=== PATIENT | male | born 1970 | race Caucasian/White ===

== ENCOUNTER 2023-08-28 13:07 | Inpatient (IN) | payer MEDICAID, OTHER ==
[~2023-08-28] VITALS: Ht 162.6 cm; Wt 76.5 kg
[2023-08-28] MEDS ORDERED: VANCOMYCIN 1G PREMIX 200 ML IV NR (15:00)
[2023-08-28] MEDS ORDERED: CEFTRIAXONE 1GM PREMIX 50 ML IV NR (15:00)
[2023-08-28 15:21] LABS: BASOPHILS % 0.3 % (0.0-2.0); EOSINOPHILS % 0.2 % (0.0-5.0); HEMATOCRIT. 33.3 % (42.0-52.0); HEMOGLOBIN. 11.1 g/dL (14.0-18.0); LYMPHOCYTES % 14.5 % (20.0-50.0); MEAN CORPUSCULAR HEMOGLOBIN 28.8 pg (28.0-32.0); MEAN CORPUSCULAR HGB CONC 33.4 g/dL (31.0-37.0); MEAN CORPUSCULAR VOLUME 86.2 fL (80.0-94.0); MEAN PLATELET VOLUME 6.5 fl (7.4-10.4); MONOCYTES % 7.6 % (2.0-8.0); NEUTROPHILS % 77.4 % (40.0-76.0); PLATELET 570 x1000/uL (130-400); RED BLOOD CELL COUNT 3.86 mill/uL (4.7-6.1); RED CELL DISTRIBUTION WIDTH 15.5 % (11.6-14.6); WHITE BLOOD COUNT 11.7 x1000/uL (4.5-11.0)
[2023-08-28 15:31] LABS: INR 1.1; PROTHROMBIN TIME 11.3 sec (9.6-11.0)
[2023-08-28 15:32] LABS: CHLORIDE 105 mEq/L (98-107); INDEX HEMOLYSI 1 (1-3); INDEX ICTERIC 1 (1-4); INDEX LIPEMIC 1 (1-3); POTASSIUM 3.3 mEq/L (3.5-5.1); SODIUM 135 mEq/L (136-145)
[2023-08-28 15:41] LABS: ALANINE AMINOTRANSFERASE 33 IU/L (13-61); ALBUMIN 2.5 g/dL (3.4-5.0); ASPARTATE AMINOTRANSFERASE 18 IU/L (15-37); BILIRUBIN TOTAL 0.6 mg/dL (0.1-1.0); CALCIUM 9.1 mg/dL (8.5-10.1); CARBON DIOXIDE 23 mEq/L (21-32); CREATININE 0.4 mg/dL (0.6-1.3); GLUCOSE 120 mg/dL (70-105); PROTEIN TOTAL 8.4 g/dL (6.0-8.3); UREA NITROGEN BLOOD 12 mg/dL (7-21)
[2023-08-28] MEDS ORDERED: CEFEPIME 1,000 MG in DEXTROSE 5% WATER 50 ML IV SCH (16:30)
[2023-08-28 17:57] LABS: CHLORIDE 104 mEq/L (98-107); INDEX HEMOLYSI 1 (1-3); INDEX ICTERIC 1 (1-4); INDEX LIPEMIC 1 (1-3); POTASSIUM 3.2 mEq/L (3.5-5.1); SODIUM 135 mEq/L (136-145)
[2023-08-28 18:00] LABS: ALBUMIN 2.4 g/dL (3.4-5.0); CALCIUM 8.9 mg/dL (8.5-10.1); CARBON DIOXIDE 24 mEq/L (21-32); GLUCOSE 176 mg/dL (70-105); UREA NITROGEN BLOOD 12 mg/dL (7-21)
[2023-08-28 18:05] LABS: ALANINE AMINOTRANSFERASE 36 IU/L (13-61); ASPARTATE AMINOTRANSFERASE 16 IU/L (15-37); BILIRUBIN TOTAL 0.6 mg/dL (0.1-1.0); CREATININE 0.4 mg/dL (0.6-1.3); PROTEIN TOTAL 8.1 g/dL (6.0-8.3)
[2023-08-28 18:11] LABS: LACTIC ACID 2.4 mmol/L (0.4-2.0)
[2023-08-28 20:00] VITALS: BP 119/79; PULSE 104; RESP 18; TEMP 97.1
[2023-08-28] MEDS ORDERED: CLONIDINE 0.1MG TABLET PO PRN (20:45)
[2023-08-28] MEDS ORDERED: POTASSIUM CHLORIDE 20MEQ TABLET SR PO NR (20:45)
[2023-08-28] MEDS ORDERED: ACETAMINOPHEN 325MG TABLET PO PRN ×2 (20:45)
[2023-08-28] MEDS ORDERED: MAGNESIUM/ALUMINUM HYDROXIDE/SIMETHICONE 30ML UDC PO PRN (20:45)
[2023-08-28] MEDS ORDERED: GUAIFENESIN 200MG/10ML SUGAR FREE UDC PO PRN (20:45)
[2023-08-28] MEDS ORDERED: IPRATROPIUM/ALBUTEROL 0.5-3(2.5)MG/3ML NEB HHN PRN (20:45)
[2023-08-28] MEDS ORDERED: DEXTROSE 50% WATER 50ML SYRINGE IV PRN (20:45)
[2023-08-28] MEDS ORDERED: DOCUSATE SODIUM 100MG CAPSULE PO PRN (20:45)
[2023-08-28] MEDS ORDERED: DIPHENHYDRAMINE 50MG/ML VIAL IV PRN (20:45)
[2023-08-28] MEDS ORDERED: ONDANSETRON HCL 4MG/2ML INJ IV PRN (20:45)
[2023-08-28] MEDS: BLOOD SUGAR DIAGNOSTIC STRIP TEST SCH (21:00)
[2023-08-28] MEDS: INSULIN LISPRO 100 UNITS/ML SUBCUT SCH (21:00)
[2023-08-28] MEDS ORDERED: KETOROLAC 15MG/ML VIAL IV PRN (23:45)
[2023-08-28] MEDS ORDERED: SODIUM CHLORIDE 0.9% 1,000 ML IV ONE (23:45)
[2023-08-29] VITALS: BP 124/87; PULSE 80; RESP 18; TEMP 98.7
[2023-08-29] MEDS: ENOXAPARIN 30MG/0.3ML SYR SUBCUT SCH ×2 (01:08→08:58)
[2023-08-29 02:24] VITALS: BP 109/58; PULSE 104; RESP 18; TEMP 97.1
[2023-08-29 04:00] VITALS: BP 129/76; PULSE 92; RESP 18; TEMP 96.9
[2023-08-29] MEDS: CEFEPIME 1,000 MG in DEXTROSE 5% WATER 50 ML IV SCH ×2 (06:04→17:53)
[2023-08-29] MEDS: VANCOMYCIN 1G PREMIX 200 ML IV SCH ×2 (06:47→18:45)
[2023-08-29 07:09] LABS: HEMATOCRIT. 29.1 % (42.0-52.0); HEMOGLOBIN. 9.8 g/dL (14.0-18.0); MEAN CORPUSCULAR HGB CONC 33.8 g/dL (31.0-37.0); MEAN CORPUSCULAR VOLUME 85.8 fL (80.0-94.0); MEAN PLATELET VOLUME 6.7 fl (7.4-10.4); PLATELET 525 x1000/uL (130-400); RED CELL DISTRIBUTION WIDTH 15.2 % (11.6-14.6); WHITE BLOOD COUNT 8.3 x1000/uL (4.5-11.0)
[2023-08-29 07:16] LABS: CHLORIDE 106 mEq/L (98-107); INDEX HEMOLYSI 1 (1-3); INDEX ICTERIC 1 (1-4); INDEX LIPEMIC 1 (1-3); POTASSIUM 3.3 mEq/L (3.5-5.1); SODIUM 136 mEq/L (136-145)
[2023-08-29 07:20] LABS: DIFFERENTIAL COMMENT 1
[2023-08-29] MEDS: BLOOD SUGAR DIAGNOSTIC STRIP TEST SCH ×4 (07:20→21:41)
[2023-08-29 07:31] LABS: ALANINE AMINOTRANSFERASE 25 IU/L (13-61); ALBUMIN 2.1 g/dL (3.4-5.0); ASPARTATE AMINOTRANSFERASE 13 IU/L (15-37); BILIRUBIN TOTAL 0.4 mg/dL (0.1-1.0); CALCIUM 8.8 mg/dL (8.5-10.1); CARBON DIOXIDE 25 mEq/L (21-32); CREATININE 0.4 mg/dL (0.6-1.3); GLUCOSE 125 mg/dL (70-105); IRON 18 ug/dL (50-175); PHOSPHORUS 3.8 mg/dL (2.5-4.9); PROTEIN TOTAL 7.2 g/dL (6.0-8.3); TOTAL IRON BINDING CAPACITY 210 ug/dL (250-450); UREA NITROGEN BLOOD 9 mg/dL (7-21)
[2023-08-29] MEDS ORDERED: POTASSIUM CHLORIDE 20MEQ TABLET SR PO NR (07:45)
[2023-08-29] MEDS: INSULIN LISPRO 100 UNITS/ML SUBCUT SCH ×4 (07:50→21:41)
[2023-08-29 08:00] VITALS: BP 117/82; PULSE 87; RESP 20; TEMP 97.2
[2023-08-29] MEDS ORDERED: MAGNESIUM 2 G PREMIX 50 ML IV NR (09:00)
[2023-08-29 09:14] LABS: VITAMIN B12 SERUM 1074 pg/mL (211-911)
[2023-08-29 12:00] VITALS: BP 136/89; PULSE 91; RESP 20; TEMP 98.8
[2023-08-29 20:00] VITALS: BP 113/80; PULSE 96; RESP 19; TEMP 97.8
[2023-08-29] MEDS: SODIUM CHLORIDE 0.9% 1,000 ML IV SCH ×2 (21:19→22:03)
[2023-08-30] VITALS: BP 111/71; PULSE 109; RESP 18; TEMP 97.5
[2023-08-30 04:00] VITALS: BP 125/90; PULSE 101; RESP 18; TEMP 98.2
[2023-08-30] MEDS: BLOOD SUGAR DIAGNOSTIC STRIP TEST SCH ×2 (05:42→12:20)
[2023-08-30] MEDS: CEFEPIME 1,000 MG in DEXTROSE 5% WATER 50 ML IV SCH (05:42)
[2023-08-30] MEDS: INSULIN LISPRO 100 UNITS/ML SUBCUT SCH (05:43)
[2023-08-30] MEDS: VANCOMYCIN 1G PREMIX 200 ML IV SCH (06:45)
[2023-08-30 07:04] LABS: CHLORIDE 106 mEq/L (98-107); INDEX HEMOLYSI 1 (1-3); INDEX ICTERIC 1 (1-4); INDEX LIPEMIC 1 (1-3); POTASSIUM 3.9 mEq/L (3.5-5.1); SODIUM 137 mEq/L (136-145)
[2023-08-30 07:07] LABS: HEMATOCRIT. 29.4 % (42.0-52.0); HEMOGLOBIN. 10.1 g/dL (14.0-18.0); MEAN CORPUSCULAR HEMOGLOBIN 29.2 pg (28.0-32.0); MEAN CORPUSCULAR HGB CONC 34.3 g/dL (31.0-37.0); MEAN CORPUSCULAR VOLUME 85.2 fL (80.0-94.0); MEAN PLATELET VOLUME 7.1 fl (7.4-10.4); PLATELET 529 x1000/uL (130-400); RED BLOOD CELL COUNT 3.45 mill/uL (4.7-6.1); RED CELL DISTRIBUTION WIDTH 15.3 % (11.6-14.6); WHITE BLOOD COUNT 9.7 x1000/uL (4.5-11.0)
[2023-08-30 07:12] LABS: ALANINE AMINOTRANSFERASE 22 IU/L (13-61); ALBUMIN 2.1 g/dL (3.4-5.0); ASPARTATE AMINOTRANSFERASE 14 IU/L (15-37); BILIRUBIN TOTAL 0.4 mg/dL (0.1-1.0); CALCIUM 8.6 mg/dL (8.5-10.1); CARBON DIOXIDE 25 mEq/L (21-32); CREATININE 0.5 mg/dL (0.6-1.3); GLUCOSE 110 mg/dL (70-105); PHOSPHORUS 3.2 mg/dL (2.5-4.9); PROTEIN TOTAL 7.3 g/dL (6.0-8.3); UREA NITROGEN BLOOD 10 mg/dL (7-21)
[2023-08-30 07:42] LABS: DIFFERENTIAL COMMENT 1
[2023-08-30 08:00] VITALS: BP 114/72; PULSE 84; RESP 20; TEMP 98.1
[2023-08-30] MEDS ORDERED: ENOXAPARIN 40MG/0.4ML SYR SUBCUT SCH (08:00)
[2023-08-30] MEDS ORDERED: IBUP-2029 PO (11:21)
[2023-08-30 11:43] VITALS: BP 114/77; PULSE 93; TEMP 98.3; O2SAT 97
[2023-08-30 12:00] VITALS: BP 114/77; PULSE 93; RESP 20; TEMP 98.3
[2023-08-30 14:29] LABS: PLATELET ESTIMATE MARKEDLY INCREASED
[2023-08-30 17:42] LABS: PLATELET ESTIMATE INCREASED
[2023-08-30] MEDS ORDERED: CEFEPIME 2,000 MG in DEXT 5% WATER 100 ML IV SCH (18:00)
== END 2023-08-30 12:30 | disposition home or self-care (01) | DRG 720 ==
LOC: ER 14:16 → 6WST 17:03 → EDBEDREQ 17:16 → EDBEDREQTM 17:16
PROVIDERS: ADMIT Internal Medicine; ATTEND Internal Medicine
DX: A41.9 Sepsis, unspecified organism (principal); E44.0 Moderate protein-calorie malnutrition; E88.09 Other disorders of plasma-protein metabolism, not elsewhere classified; E11.69 Type 2 diabetes mellitus with other specified complication; M00.861 Arthritis due to other bacteria, right knee; M86.8X6 Other osteomyelitis, lower leg; E11.65 Type 2 diabetes mellitus with hyperglycemia; D64.9 Anemia, unspecified; D75.839 Thrombocytosis, unspecified; M17.11 Unilateral primary osteoarthritis, right knee; E87.6 Hypokalemia; I10 Essential (primary) hypertension; M65.9 Synovitis and tenosynovitis, unspecified; Z79.4 Long term (current) use of insulin; Z68.28 Body mass index [BMI] 28.0-28.9, adult
CPT/HCPCS: 36415; 73560; 73721; 80053; 80202; 82607; 82728; 82746; 82962; 83540; 83550; 83605; 83735; 84100; 84145; 85025; 93922; 93970; 96365; 96375; 99285; J0692; J1650; J1815; J1885; J3370; J3475; J7030; J7060

== ENCOUNTER 2023-10-28 01:43 | Emergency (ER) | payer MEDICAID, OTHER ==
[~2023-10-28] VITALS: Ht 157.5 cm; Wt 71.0 kg
[~2023-10-28 01:43] MED LIST: IBUP-2029 PO
[2023-10-28 02:09] VITALS: BP 148/70; PULSE 89; RESP 15; TEMP 98.7; O2SAT 99
[2023-10-28 09:26] LABS: ALANINE AMINOTRANSFERASE 17 IU/L (10-49); ALBUMIN 4.3 g/dL (3.2-4.8); ASPARTATE AMINOTRANSFERASE 18 IU/L (<34); BILIRUBIN TOTAL 0.3 mg/dL (0.1-1.0); CALCIUM 9.6 mg/dL (8.7-10.4); CARBON DIOXIDE 21 mEq/L (21-32); CHLORIDE 104 mEq/L (98-107); CREATININE 0.6 mg/dL (0.6-1.3); GLUCOSE 111 mg/dL (70-105); PROTEIN TOTAL 8.1 g/dL (6.0-8.3); SODIUM 135 mEq/L (136-145); UREA NITROGEN BLOOD 11 mg/dL (9-23)
[2023-10-28 09:35] LABS: BASOPHILS % 0.2 % (0.0-2.0); EOSINOPHILS % 0.4 % (0.0-5.0); HEMATOCRIT. 39.6 % (42.0-52.0); HEMOGLOBIN. 12.6 g/dL (14.0-18.0); LYMPHOCYTES % 22.8 % (20.0-50.0); MEAN CORPUSCULAR HEMOGLOBIN 26.7 pg (28.0-32.0); MEAN CORPUSCULAR HGB CONC 31.7 g/dL (31.0-37.0); MEAN CORPUSCULAR VOLUME 84.1 fL (80.0-94.0); MONOCYTES % 6.2 % (2.0-8.0); NEUTROPHILS % 70.4 % (40.0-76.0); PLATELET 382 x1000/uL (130-400); RED BLOOD CELL COUNT 4.71 mill/uL (4.7-6.1); RED CELL DISTRIBUTION WIDTH 17.7 % (11.6-14.6); WHITE BLOOD COUNT 9.9 x1000/uL (4.5-11.0)
[2023-10-28 09:38] LABS: PROTHROMBIN TIME 10.3 sec (9.6-11.0)
[2023-10-28 11:02] LABS: TROPONIN I HIGH SENSITIVITY < 4 ng/L (3.0-53)
== END 2023-10-28 12:06 | disposition home or self-care (01) ==
LOC: ER 01:43
DX: R00.2 Palpitations (principal); E11.9 Type 2 diabetes mellitus without complications; I10 Essential (primary) hypertension
CPT/HCPCS: 36415; 71045; 80053; 83880; 84484; 85025; 93005; 99285